=== PATIENT | female | born 1985 | race Caucasian/White ===

== ENCOUNTER 2023-05-04 20:05 | Emergency (ER) | payer SELFPAY ==
--- NOTE | 2023-05-04 20:09 | ECG_ITS ---
[facility] Test Date: 2023-05-04 Pat Name: Allyn Mandujano Department: Room: Gender: Female Photographic Processor: : 1985 Requested By: Drew Casper Order Number: [id number] Sylvia MD: Tate Bruce M.D. Measurements Intervals [place] Rate: 104 P: 54 VA: 119 QRS: 61 QRSD: 86 T: 56 QT: 323 QTc: 427 Interpretive Statements SINUS TACHYCARDIA WITH SHORT VA INTERVAL POSSIBLE RIGHT VENTRICULAR CONDUCTION DELAY [RSR (QR) IN V1/V2] ABNORMAL RHYTHM ECG No previous ECG available for comparison Electronically Signed On 05-05-2023 14:46:15 [employer] by Tate Bruce M.D. [email or web address]
--- NOTE | 2023-05-04 20:16 | W.ED.CHESTPA ---
HPI - Chest Pain General: Stated Complaint: CP, ETOH Time Seen by Provider: 05/04/23 20:08 History of Present Illness: Patient brought in by [facility] with complaints of chest pain. Patient was arrested on a warrant and began having chest pain approximately 1800 hrs. Patient is not going to be In assisted they are talking about her bonding out. Patient denies nausea vomiting shortness of breath abdominal pain. Says she has had this chest pain before. Patient does not want any interventions done for this chest pain such as lab draw or IV. Patient will allow us to do a EKG. Review of Systems General: Reports: 10 or more systems reviewed and unremarkable except in HPI and below Physical Exam Const: COMMON NORMALS: no acute distress, average body habitus, patient oriented x3, no limitations, healthy appearing, alert and well nourished HENMT: COMMON NORMALS: normocephalic, atraumatic, hearing grossly normal bilaterally, external ears normal, Normal external nose present, moist oral mucous membranes and oropharynx normal HEAD & SCALP: normocephalic and atraumatic NOSE: Normal external nose present EXTERNAL EAR: Yes external ears normal Neck/C-Spine: COMMON NORMALS: no JVD Chest: COMMONS NORMALS: normal inspection of the chest and normal palpation of entire chest wall Resp: COMMON NORMALS: normal respiratory effort, No retractions, No use of accessory muscles and clear to auscultation bilaterally AUSCULTATION: clear to auscultation bilaterally Cardio: COMMON NORMALS: no JVD, regular rate, regular rhythm, S1 normal heart sound present, S2 normal heart sound present, No gallops present (Cardio), No clicks present (Cardio), No murmurs present (Cardio) and No rub (Cardio) RATE: regular rate RHYTHM: regular rhythm HEART SOUNDS: S1 normal heart sound present and S2 normal heart sound present Neuro: COMMON NORMALS: patient oriented x3 SENSORIUM/ORIENTATION: Yes alert MDM - Chest Pain Medical Decision Making Patient is refusing IV and lab draws. She will allow us to do an EKG. EKG was obtained which showed sinus tachycardia with short TX interval. This patient is refusing all other interventions we will have her sign out AMA. Differential Diagnosis Unlikely acute massive pulmonary embolism, acute respiratory failure, acute myocardial infarction, cardiac arrest or sudden cardiac Medical Records I reviewed the patient's medical records. Lab Data I reviewed the patient's lab results. No radiology studies performed this visit EKG Data EKG 1: I personally reviewed and interpreted this EKG as follows: EKG interpretation date: 05/04/23 EKG interpretation time: 20:18 Prior EKG tracings: not available for review Interpretation: Ventricular rate 104 bpm, TX interval 119, QRS duration 86, QTc of 384, sinus tachycardia with short TX interval Discharge Plan Discharge Patient Disposition: Left Against Medical Advice Clinical Impression: Chest pain Condition: Stable Patient Instructions: Against Medical Advice (ED), Chest Pain (ED) Activity Restrictions/Additional Instructions: Is here refusing all her other test other than your EKG your chest pain workup is vastly incomplete. Your EKG did not show any acute causes of your chest pain. You are signing out to AGAINST MEDICAL ADVICE puts you at high risk specially since the complete workup was not obtained. If you decide to have the full workup please feel free to return to the ER. Otherwise follow-up with your family practice physician within the next 7 days for further evaluation testing. Coding Level of Care Code ED [employer] for Jose Miguel Weber
--- NOTE | 2023-05-04 20:19 | PC.NURSE ---
pt. states that she wants no testing or treatment.
--- NOTE | 2023-05-04 20:27 | PC.NURSE ---
EMS report that the police department was at the patients house to serve a warrant , when she began to have chest pain. Once patient is at the ER, the patient states that she is not having chest pain and that she is refusing all tests or treatment.
== END 2023-05-04 20:59 | disposition left against medical advice (07) ==
PROVIDERS: Emergency Provider Emergency Medicine
DX: R07.9 Chest pain, unspecified (principal); Z53.29 Procedure and treatment not carried out because of patient's decision for other reasons
CPT/HCPCS: 93005; 99283